=== PATIENT | male | born 1985 | race Caucasian/White ===

== ENCOUNTER → 2021-01-16 | Outpatient (CLI) | payer OTHER ==
[2021-01-16 14:48] LABS: BASOPHILS % (AUTO) 0.2 % (0.0-2.0); EOSINOPHILS % (AUTO) 0.6 % (1.0-6.0); HEMATOCRIT 34.5 % (41-53); HEMOGLOBIN 11.1 g/dL (13.5-17.5); LYMPHOCYTES # (AUTO) 1.4 K/uL (1.0-4.8); MEAN CORPUSCULAR HEMOGLOBIN 30.1 pg (26.0-34.0); MEAN CORPUSCULAR HGB CONC 32.1 G/dL (31.0-37.0); MEAN CORPUSCULAR VOLUME 94 fL (80-100); MONOCYTES # (AUTO) 0.5 K/uL (0.1-1.0); MONOCYTES % (AUTO) 6.3 % (2.0-9.0); NEUTROPHILS # (AUTO) 5.8 K/uL (1.8-7.7); NEUTROPHILS % (AUTO) 74.9 % (40.0-70.0); PLATELET COUNT (AUTO) 119 K/uL (150-450); RED BLOOD CELL COUNT(AUTO) 3.68 MIL/uL (4.50-5.90); RED CELL DISTRIBUTION WIDTH 13.2 % (11.5-14.5)
[2021-01-16 15:06] LABS: ALBUMIN 4.2 g/dL (3.4-5.0); CALCIUM, TOTAL 10.1 mg/dL (8.8-10.5); CREATININE 12.73 mg/dL (0.60-1.30); PHOSPHORUS 4.6 mg/dL (2.5-4.9)
[2021-01-16 15:31] LABS: POTASSIUM 6.2 mmol/L (3.5-5.1)
[2021-01-16 15:33] LABS: URIC ACID 10.2 mg/dL (2.6-7.2)
== END | disposition home or self-care (01) ==
LOC: LABMN 13:57
PROVIDERS: ATTEND Internal Medicine Nephrology
DX: N18.5 Chronic kidney disease, stage 5 (principal)
CPT/HCPCS: 80069; 82306; 83970; 84550; 85025